=== PATIENT | male | born 1995 | race Caucasian/White ===

== ENCOUNTER 2018-07-16 22:24 | Emergency (ER) | payer SELFPAY ==
[~2018-07-16] VITALS: Ht 175.3 cm; Wt 81.6 kg
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
[2018-07-16] MEDS ORDERED: LIDOCAINE 1% INJ 20 ML 20 ML VIAL INJ ONE (23:00)
[2018-07-17 00:12] VITALS: BP 139/82
== END 2018-07-17 00:12 | disposition home or self-care (01) ==
LOC: ER FS 22:26
DX: S61.411A Laceration without foreign body of right hand, initial encounter (principal); W26.0XXA Contact with knife, initial encounter
CPT/HCPCS: 12001

== ENCOUNTER 2018-07-28 11:20 | Emergency (ER) | payer SELFPAY ==
[~2018-07-28] VITALS: Ht 175.3 cm; Wt 81.6 kg
[2018-07-28 11:56] VITALS: BP 144/86
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
== END 2018-07-28 11:56 | disposition home or self-care (01) ==
LOC: EDUNIT# 11:20 → ER FS 11:22
DX: T81.31XA Disruption of external operation (surgical) wound, not elsewhere classified, initial encounter (principal); L08.9 Local infection of the skin and subcutaneous tissue, unspecified; S61.210D Laceration without foreign body of right index finger without damage to nail, subsequent encounter; F17.210 Nicotine dependence, cigarettes, uncomplicated; W26.0XXD Contact with knife, subsequent encounter

== ENCOUNTER 2019-01-11 18:17 | Emergency (ER) | payer SELFPAY ==
[~2019-01-11] VITALS: Ht 175.2 cm; Wt 80.5 kg
--- NOTE | 2019-01-11 18:30 | NUR ---
PT'S FEET PLACED IN TEPID TAP WATER TO SOAK TO BEGIN LOOSENING OF CONCRETE MATERIAL COATING ON FEET.
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
[2019-01-11] MEDS ORDERED: TRAM50TA2 PO (18:38)
[2019-01-11] MEDS ORDERED: CEPH500T PO (18:38)
--- NOTE | 2019-01-11 19:00 | NUR ---
REPORT TO CAYDEN ASHER.
[2019-01-11 19:32] VITALS: BP 143/85
== END 2019-01-11 19:32 | disposition home or self-care (01) ==
LOC: EDUNIT# 18:17 → ER FS 18:19
DX: T65.91XA Toxic effect of unspecified substance, accidental (unintentional), initial encounter (principal); T25.631A Corrosion of second degree of right toe(s) (nail), initial encounter; T32.0 Corrosions involving less than 10% of body surface
CPT/HCPCS: 99283

== ENCOUNTER → 2019-01-22 | Outpatient (CLI) | payer SELFPAY ==
[~2019-01-22] MED LIST: CEPH500T PO; TRM50T PO
== END ==
LOC: WOUNDCARE 09:17
PROVIDERS: ATTEND Surgery
DX: T25.321A Burn of third degree of right foot, initial encounter (principal); T25.322A Burn of third degree of left foot, initial encounter; T65.222A Toxic effect of tobacco cigarettes, intentional self-harm, initial encounter; F17.218 Nicotine dependence, cigarettes, with other nicotine-induced disorders

== ENCOUNTER → 2019-01-27 | Outpatient (CLI) | payer SELFPAY ==
[~2019-01-27] MED LIST changes: +TRAM50TA2 PO; -TRM50T PO
== END ==
LOC: WOUNDCARE 09:53
PROVIDERS: ATTEND Surgery
DX: T25.321A Burn of third degree of right foot, initial encounter (principal); T25.322A Burn of third degree of left foot, initial encounter; I96 Gangrene, not elsewhere classified; T65.222A Toxic effect of tobacco cigarettes, intentional self-harm, initial encounter; F17.218 Nicotine dependence, cigarettes, with other nicotine-induced disorders
CPT/HCPCS: 16020